=== PATIENT | male | born 1945 | race Caucasian/White ===

== ENCOUNTER → 2024-12-16 | Outpatient (CLI) | payer MEDICARE ==
[~2024-12-16] MED LIST: REGADENOSON 0.4 MG/5 ML PF SYG IVP ONE
--- NOTE | 2024-12-16 17:13 | HMCSR ---
APPROVED REPORT Height: 5 ft 8in Weight: 145 lbs TEST INDICATIONS Shortness of Breath The imaging protocol used to acquire images was Rest Tc-99m/stress Tc-99m 1 day Consent: The procedure was explained and understood by the patient. Informerd consent was witnessed Nandini Moore RN First, low dose rest was performed then high dose stress. RESTING DATA: The resting ekg shows: NSR Rest SPECT myocardial perfusion imaging was performed in supine position minutes following the intra venous injection of 12 mCi of Tc-99 Sestamibi. Time of rest injection: 08:52: Date: 12/16/2024 PHARMACOLOGIC STRESS: Pharmacologic stress test was performed by injecting regadenoson 0.4 mg IV push followed by the intra venous injection of 30 mCi of Tc-99 Sestamibi. Time of stress injection: 10:45: Date: 12/16/2024 Heart Rate at time of stress injection: 50 bpm. The images were gated to evaluate regional wall motion and calculate left ventricular ejection fracti on. STRESS DETAILS Reason for Termination: Infusion complete Stress Symptoms: Dyspnea Max HR Achieved: 64 bpm % of APMHR Achieved: 54 Max Blood Pressure: 161/78 mmHg Stress ECG: NSR Study quality was good. Lung uptake was Normal. LEFT VENTRICLE The left ventricular ejection fraction was calculated to be 38%.TID = . 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
== END | disposition home or self-care (01) ==
LOC: RAH 08:37
PROVIDERS: ATTEND Internal Medicine Cardiovascular Disease
DX: R06.02 Shortness of breath (principal); R06.00 Dyspnea, unspecified
CPT/HCPCS: 78452; 93017; J2785; A9500 ×2

== ENCOUNTER → 2025-04-01 | Outpatient (CLI) | payer MEDICARE ==
[~2025-04-01] MED LIST changes: +IOHEXOL 350 MG/ML 100ML INFUS..BTL IV ONE; -REGADENOSON 0.4 MG/5 ML PF SYG IVP ONE
--- NOTE | 2025-04-01 11:53 | HMCIMG ---
CT CARDIAC ANGIO W/CONT. CCTA HISTORY: No additional history given. COMPARISON: None TECHNIQUE: Multiple sequential axial images of the chest were obtained along with the CT angiogram of the chest study. Patient was given 100 cc of Omnipaque through intravenous route. FINDINGS: There is no evidence of pulmonary nodule or parenchymal disease. No pleural effusion or pericardial effusion is seen. There is no evidence of pneumothorax. There are normal size mediastinal and hilar lymph nodes. The heart is borderline enlarged. Coronary arterial calcifications are seen. Degenerative changes of the thoracolumbar spine are present. There is hiatal hernia. There is atherosclerosis. IMPRESSION: 1. No evidence of pulmonary nodule or effusion is seen. Please see CT angiogram report of coronary arteries.
== END | disposition home or self-care (01) ==
LOC: RAH 08:52
PROVIDERS: ATTEND Internal Medicine Cardiovascular Disease
DX: I25.10 Atherosclerotic heart disease of native coronary artery without angina pectoris (principal); I70.90 Unspecified atherosclerosis; M47.815 Spondylosis without myelopathy or radiculopathy, thoracolumbar region; K44.9 Diaphragmatic hernia without obstruction or gangrene
CPT/HCPCS: 75574; Q9967

== ENCOUNTER → 2025-07-15 | Outpatient (CLI) | payer MEDICARE ==
--- NOTE | 2025-07-15 16:30 | HMCSR ---
APPROVED REPORT INDICATION Congestive Heart Failure PROCEDURE The patient was injected with 12.5 mg of cold stannous pyrophosphate. After 20-30 minutes the patien t was injected with 25 mCi of Technetium-99m Pertechnate. The patient was then imaged with ECG gating in the planar HUNGARIAN, anterior and lateral view(s). Findings Image quality is good. LV Systolic Function:The left ventricular systolic function is mildly decreased. The calculated left ventricular ejection fraction is 42%. Visually, the left ventricular ejection fra ction is the calculated ejection fraction. Impressions Abnormal MUGA study. Mildly decreased left ventricular systolic function. Calculated left ventricular ejection fraction is 42%.
== END | disposition home or self-care (01) ==
LOC: RAH 13:02
PROVIDERS: ATTEND Internal Medicine Cardiovascular Disease
DX: I50.22 Chronic systolic (congestive) heart failure (principal)
CPT/HCPCS: 78481; A9512

== ENCOUNTER → 2025-11-02 | Outpatient (CLI) | payer MEDICARE ==
--- NOTE | 2025-11-04 01:37 | HMCIMG ---
EXAM: MR Brain with and without Intravenous Contrast. CLINICAL HISTORY: R51 Headache TECHNIQUE: Multisequence, multiplanar magnetic resonance images were acquired of the brain with and without intravenous contrast. CONTRAST: None. COMPARISON: None provided. FINDINGS: BRAIN: No restricted diffusion to indicate acute infarction. No intracranial mass or hemorrhage. No midline shift or extra-axial fluid collection. No cerebellar tonsillar ectopia. No abnormal enhancement. The central arterial and venous flow voids are patent. Age-related mild diffuse cerebral and cerebellar atrophy. Discrete to confluent T2 FLAIR hyperintense foci in bilateral periventricular white matter, including hernandez radiata and centrum semiovale, bilateral tegmental tracts of the midbrain and annabel, suggestive of chronic small vessel ischemic changes. A few discrete lacunar infarcts are also noted in the bilateral hernandez radiata and basal ganglia. The pituitary has a relatively heterogeneous signal on T1 with a height of up to 6 mm. There is increased prominence of the subcutaneous fat in the posterior scalp and suboccipital region. There is increased tortuosity of the bilateral optic nerves with fullness of the sheaths with CSF. VENTRICLES: No hydrocephalus. ORBITS: There is increased tortuosity in the bilateral optic nerves with fullness of the sheaths with CSF. Bilateral pseudophakia. The rest of the orbits are normal. SINUSES AND MASTOIDS: Mild pansinusitis. The mastoid air cells are clear. Mild rightward deviation of the nasal septum. BONES: No acute fracture or aggressive-appearing osseous lesion. Mild malalignment between the lateral masses of the atlas and axis by 2 to 3 mm suggests mild instability. 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 IMPRESSION: No acute infarction, intracranial hemorrhage, or mass lesion. Age-related, mild diffuse cerebral and cerebellar atrophy. Moderate small vessel ischemic changes in bilateral periventricular white matter, including hernandez radiata and centrum semiovale, bilateral tegmental tracts of the midbrain and annabel. A few discrete chronic lacunar infarcts in the bilateral hernandez radiata and basal ganglia. Heterogeneous pituitary signal with increased prominence of the subcutaneous fat in the posterior scalp and suboccipital region, and increased tortuosity of bilateral optic nerves with fullness of the sheaths with CSF, without liss pailledema- a possible component of idiopathic intracranial hypertension cannot be ruled out. Mild pansinusitis. Mild malalignment between the lateral masses of the atlas and axis suggests mild instability. 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 /[place]
== END | disposition home or self-care (01) ==
LOC: RAH 10:59
PROVIDERS: ATTEND Internal Medicine Cardiovascular Disease
DX: I63.81 Other cerebral infarction due to occlusion or stenosis of small artery (principal); I67.82 Cerebral ischemia; G31.89 Other specified degenerative diseases of nervous system; J32.4 Chronic pansinusitis; R51.9 Headache, unspecified; M19.29 Secondary osteoarthritis, other specified site; Z86.73 Personal history of transient ischemic attack (TIA), and cerebral infarction without residual deficits
CPT/HCPCS: 70551